=== PATIENT | female | born 1965 | race Caucasian/White ===

== ENCOUNTER 2016-05-02 06:00 | Inpatient (IN) | payer BC, OTHER ==
--- NOTE | 2016-05-01 13:14 | RADRPT ---
Vent Rate: 66 bpm RR Interval: 0 msec [place] Interval: 142 msec QRS Duration: 76 msec QT Interval: 384 msec QTC Interval: 402 msec P-R-T [place]: 47 - 49 - 35 degrees Normal sinus rhythm Normal ECG Electronically Signed By: Manuelito Denny [id number]
[2016-05-02] VITALS (33 sets, daily range): BP systolic 80–125; BP diastolic 46–76; PULSE 68–95; RESP 11–26; Ht 162.6 cm; Wt 66.5 kg
[~2016-05-02] VITALS: Ht 162.6 cm; Wt 66.5 kg
--- NOTE | 2016-05-02 05:29 | PREOPHP ---
DATE OF ADMISSION: 05/02/2016 HISTORY OF PRESENT ILLNESS: This is a 50-year-old lady, 4, para 3 with 1 spontaneous aborti on. Her last normal menstrual period was a few months prior to admission. She was admitted for JOSE and BSO. This patient had a history of abnormal Pap smear. Colposcopy biopsy done showed ANIBAL 1, a nd she had repeat Pap smear again. It showed again low grade KORY. The patient had a LEEP and D and C, and the LEEP and D and C showed low-grade KORY for the ectocervix and for the endocervix with low -grade KORY on the endocervix. It showed some focal glandular involvement which extends to the caute rized tissue. She saw a [facility]OSPICE [facility] AIDE oncologist, and he advised the patient to have JOSE and BSO. The patien nova was admitted for JOSE and BSO. The procedures were explained to her, and she understood everything totally. The risks, benefits, and alternatives were discussed with her as well. PAST PERSONAL HISTORY: No history of TB or asthma. ALLERGIES: NO ALLERGIES. SOCIAL HISTORY: The patient does not smoke. She does not drink. MEDICATIONS: She does not take any drugs. GYNECOLOGIC HISTORY: She had menarche at the age of 13, every 28 days interval, 3 to 4 days duratio n, and moderate in amount. FAMILY HISTORY: Mother has diabetes. Mother and sister have high blood pressure as well. She is g ravida 4, para 3 with 3 normal deliveries. REVIEW OF SYSTEMS: CARDIOVASCULAR: No chest pains. RESPIRATORY: No cough. GASTROINTESTINAL: No diarrhea, no vomiting. GENITOURINARY: No dysuria. PHYSICAL EXAMINATION: GENERAL: Reveals a conscious coherent lady in no acute distress. VITAL SIGNS: Her blood pressure is 120/80, pulse rate 80 per minute, respirations 16 per minute. BREASTS, HEART, AND LUNGS: Within normal limits. ABDOMEN: Soft. No organomegaly. PELVIC: Revealed the cervix to be firm, uterus of normal size, and adnexa were negative for masses. RECTAL: Confirmed the pelvic findings. EXTREMITIES: No pedal edema. 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 The patient was planned to have JOSE and BSO per oncology recommendation. The procedures were explained to her, and she understood everything totally. The r isks, benefits, and alternatives were discussed with her as well. Dictated By: CORBIN ACEVEDO MD NS/NTS Conf#: [id number] DID#: [id number] CC: CORBIN ACEVEDO MD;*EndCC*
[2016-05-02] MEDS ORDERED: ESMOLOL 100 MG INJ ONE (07:00)
[2016-05-02] MEDS ORDERED: morphine SULFATE/PF (10 MG/10 ML) INJ ONE (07:29)
[2016-05-02] MEDS ORDERED: ROCURONIUM 50 MG INJ ONE (07:29)
[2016-05-02] MEDS ORDERED: PROPOFOL 20 ML ONE (07:29)
[2016-05-02] MEDS ORDERED: MIDAZOLAM 1 MG/ML 2 ML INJ ONE (07:29)
[2016-05-02] MEDS ORDERED: PHENYLephrine (100 MCG/ML) 5ML SYG ONE ×3 (07:47→08:23)
[2016-05-02] MEDS ORDERED: CEFAZOLIN 1 GM INJ ONE (08:07)
[2016-05-02] MEDS ORDERED: GLYCOPYRROLATE 0.4 MG INJ ONE (08:38)
[2016-05-02] MEDS ORDERED: KETOROLAC 30 MG INJ ONE (08:38)
[2016-05-02] MEDS ORDERED: DEXAMETHASONE 4 MG/ML 1 ML INJ ONE (08:38)
[2016-05-02] MEDS ORDERED: METOCLOPRAMIDE 10 MG INJ ONE (08:38)
[2016-05-02] MEDS ORDERED: NEOSTIGMINE 3 MG/3 ML SYRINGE ONE ×2 (08:38→09:06)
[2016-05-02] MEDS ORDERED: ONDANSETRON 4 MG INJ ONE (08:38)
[2016-05-02] MEDS ORDERED: ACETAMINOPHEN 1000MG/100ML IV 100 ML ONE (08:58)
[2016-05-02] MEDS ORDERED: ONDANSETRON 4 MG INJ IV PRN (09:00)
[2016-05-02] MEDS ORDERED: KETOROLAC 30 MG INJ IV PRN (09:00)
[2016-05-02] MEDS ORDERED: NALBUPHINE HCL (10 MG/1 ML) INJ IV PRN (09:00)
[2016-05-02] MEDS ORDERED: DIPHENHYDRAMINE 50 MG INJ IV PRN (09:00)
[2016-05-02] MEDS ORDERED: morphine 2 MG INJ IV PRN (09:00)
[2016-05-02] MEDS ORDERED: ACETAMINOPHEN 500 MG TAB PO PRN (09:00)
[2016-05-02] MEDS ORDERED: HYDROCODONE/APAP (5/325) TAB PO PRN (09:00)
[2016-05-02] MEDS ORDERED: HYDROmorphONE 1 MG/ML SYG IV PRN ×2 (09:00)
[2016-05-02] MEDS ORDERED: ZOLPIDEM 5 MG TAB PO PRN (09:00)
[2016-05-02] MEDS ORDERED: NALOXONE (0.4 MG/ML) INJ IV PRN (09:00)
[2016-05-02] MEDS ORDERED: ONDANSETRON 4 MG TAB PO PRN (10:00)
[2016-05-02] MEDS ORDERED: BISACODYL 10 MG SUPP PR PRN (10:00)
[2016-05-02] MEDS ORDERED: HETASTARCH 6% NACL 500 ML ONE (10:24)
[2016-05-02] MEDS ORDERED: HETASTARCH 6% NACL 500 ML BAG IV* ONE (10:29)
[2016-05-02] MEDS: LACTATED RINGER'S 1,000 ML IV SCH ×3 (14:23→22:00)
[2016-05-02 15:29] LABS: ADD UMIC YES; URINE BILIRUBIN (Dip) NEGATIVE (NEGATIVE); URINE BLOOD (Dip) TRACE (NEGATIVE); URINE COLOR YELLOW (YELLOW); URINE GLUCOSE (Dip) NEGATIVE (NEGATIVE); URINE KETONES (Dip) NEGATIVE (NEGATIVE); URINE LEUKOCYTE ESTERASE (Dip) NEGATIVE (NEGATIVE); URINE NITRITE (Dip) NEGATIVE (NEGATIVE); URINE TOTAL PROTEIN (Dip) NEGATIVE (NEGATIVE); URINE UROBILINOGEN (Dip) 0.2 E.U./dL (0.1-1.0)
[2016-05-02 15:48] LABS: SQUAMOUS EPITHELIAL CELL,UR FEW
[2016-05-03] VITALS (10 sets, daily range): BP systolic 84–111; BP diastolic 50–73; PULSE 53–110; RESP 14–22
[2016-05-03] MEDS: LACTATED RINGER'S 1,000 ML IV SCH ×7 (02:54→20:26)
[2016-05-03 05:55] LABS: ADD SCAN DIFF NO
[2016-05-03] MEDS ORDERED: BISACODYL 10 MG SUPP PR ONE (06:00)
[2016-05-03] MEDS: MAGNESIUM HYDROXIDE 30ML CUP PO SCH ×3 (06:05→20:04)
--- NOTE | 2016-05-03 06:11 | OPR ---
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 POSTOPERATIVE DIAGNOSIS: Pending pathology report. SURGEON: Corbin Blair MD RESEARCH NURSE: MD Diamond ANESTHESIA: General. OPERATION PERFORMED: Exploratory laparotomy, total abdominal hysterectomy, bilateral salpingo-oopho rectomy. OPERATIVE TECHNIQUE: Under general anesthesia, the patient was prepped and draped in the usual [facility] for abdominal surgery. After checking for the effect of the anesthesia, Pfannenstiel incision, 12 cm skin incision, was performed. The incision was carried from the skin up to the fascia. Upon opening the skin up to the fascia, small blood vessels were noted to be oozing, and these were all c auterized. Fascia was opened transversely followed by splitting the muscles vertically and the antonio toneum vertically. Upon opening the abdominal cavity, the upper abdominal organs were palpated and were within normal limits. The uterus was brought to view. It was noted to be about 12 weeks' size and very soft. Then, the self-retaining retractor was put in place. The bladder blade was put in place. The bowels were packed away from the operative field with the aid of 6 wet lap sponges. The n, the upper blade was put in place. Two 8 inch Kochers were placed at the stump of utero-ovarian a nd uterotubal ligaments on both sides. These were used for traction. Then the left round ligament was grasped with 2 Kochers and cut. A stick tie with 0 Vicryl was used as tag. The left broad liga ment was skeletonized for the development of the bladder flap. The left infundibulopelvic ligament was grasped with 2 Teresa clamps and pulled back with a straight Jeffrey and cut. At first, a free t ie with 0 Vicryl was used followed by Teresa suture. Bleeders were checked, and there was no bleedi ng noted. Same thing was done on the right side. The right round ligament was grasped with 2 Koche rs and cut. A stick tie with 0 Vicryl was used as tag. The right broad ligament was skeletonized f or the development of the bladder flap. The right infundibulopelvic ligament was grasped with 2 Hea allyn clamps and pulled back with a straight Jeffrey and cut. At first, a free tie with 0 Vicryl was u sed followed by Teresa suture. Bleeders were checked, and there was no bleeding noted. Once again, the bladder was from the cervix by sharp and blunt dissection after the broad ligaments on both sides. Then, the left uterine vessels were brought to view. The left uterine ves sels were grasped with 2 Teresa clamps and pulled back with a straight Jeffrey and cut. A stick tie with 0 Vicryl was used on its clamp. Bleeders were checked, and there was no bleeding noted. Same thing was done on the right side. Then, once again, the bladder was from the cervix by sh milena and blunt dissection. Then the paracervical tissue on both sides was grasped with two 8 inch Ko chers, and a stick tie with 0 Vicryl was used on its clamp. Then the body of the uterus was excised for good visualization of the operative field. Then, the remaining cervix was grasped with two sin gle tooth tenaculums. Once again, the bladder was from the cervix by sharp and blunt diss ection. About 7 Kochers were placed at the paracervical tissue on the left and right sides, and bef ore clamping, the bladder was from the cervix by sharp and blunt dissection. A stick tie with 0 Vicryl was used on its clamp. Then the left uterosacral ligament was grasped with a Jeffrey a nd cut. A stick tie with 0 Vicryl was used as tag. Same thing was done on the right side. Then, t he cervical vaginal angle was brought to view. The cervical vaginal angle was grasped with 2 Teresa clamps, and the cervix was excised. The Teresa suture was used on its clamp. Then, another layer of 0 Vicryl was used to reinforce the suture on the clamp. Bleeders were checked, and there was grant e oozing noted at the right angle of the vagina. Two rajvcy-wo-rwyvb sutures were put in, and the b leeding was controlled. Then, irrigation was checked and bleeders were checked, and there was no bl eeding noted. Then, the right angle of the vagina was tied with a right uterosacral ligament for va ginal vault suspension. Same thing was done on the left side. Once again, bleeders were checked, a nd there was no bleeding noted. The raw area was covered with fibrillar. Then, after correct spong e count, needle count, and instrument count, the abdomen was closed in the usual fashion using 0 Steven ryl for the peritoneum, 0 Vicryl for the muscles, for the fascia 0 Vicryl continuous suture was used followed by few seqezr-iy-agjew sutures. For the subcutaneous tissue, it was closed with 3-0 Vicry l, and the skin was closed with 3-0 Vicryl, subcuticular suture was used. The patient tolerated the procedure well. Estimated blood loss about 300 mL. Vital signs were stable during and after the p rocedure. Dictated By: CORBIN EUBANKS/PEPE Conf#: [id number] DID#: [id number]
[2016-05-03 06:12] LABS: BASOPHILS % 0.2 % (0.0-2.0); EOSINOPHILS % 0.1 % (0.0-7.0); HEMATOCRIT 28.5 % (37.0-47.0); HEMOGLOBIN 9.3 g/dl (12.0-16.0); LYMPHOCYTES # 1.3 10^3/ul (0.8-2.9); LYMPHOCYTES % 14.3 % (15.0-51.0); MEAN CORPUSCULAR HEMOGLOBIN 31.2 pg (29.0-33.0); MEAN CORPUSCULAR HGB CONC 32.6 g/dl (32.0-37.0); MEAN CORPUSCULAR VOLUME 95.6 fl (82.0-101.0); MEAN PLATELET VOLUME 9.7 fl (7.4-10.4); MONOCYTE # 0.7 10^3/ul (0.3-0.9); MONOCYTES % 7.7 % (0.0-11.0); NEUTROPHIL # 7.1 10^3/ul (1.6-7.5); NEUTROPHILS % 77.4 % (39.0-77.0); PLATELET COUNT 180 10^3/UL (140-415); RED BLOOD COUNT 2.98 10^6/ul (4.20-5.40); RED CELL DISTRIBUTION WIDTH 12.5 % (11.5-14.5); WHITE BLOOD COUNT 9.1 10^3/ul (4.8-10.8)
[2016-05-03 06:25] LABS: POTASSIUM 3.4 mmol/L (3.5-5.1)
[2016-05-03 06:27] LABS: BILIRUBIN,INDIRECT 0.8 mg/dl (0-1.1); BILIRUBIN,TOTAL 0.8 mg/dl (0.2-1.3); CREATININE 0.68 mg/dl (0.44-1.00)
[2016-05-03 06:28] LABS: CALCIUM 7.2 mg/dl (8.4-10.2)
[2016-05-03] MEDS ORDERED: LACTATED RINGER'S 500 ML IV ONE (11:00)
[2016-05-03] MEDS ORDERED: OXYCODONE/ACETAMINOPHEN (5/325) TAB PO PRN (11:00)
[2016-05-03 13:58] LABS: ADD SCAN DIFF NO
[2016-05-03 13:59] LABS: BASOPHILS % 0.3 % (0.0-2.0); HEMATOCRIT 29.2 % (37.0-47.0); HEMOGLOBIN 9.6 g/dl (12.0-16.0); LYMPHOCYTES # 1.1 10^3/ul (0.8-2.9); LYMPHOCYTES % 9.6 % (15.0-51.0); MEAN CORPUSCULAR HEMOGLOBIN 31.9 pg (29.0-33.0); MEAN CORPUSCULAR HGB CONC 32.9 g/dl (32.0-37.0); MEAN PLATELET VOLUME 9.9 fl (7.4-10.4); MONOCYTE # 0.8 10^3/ul (0.3-0.9); MONOCYTES % 6.5 % (0.0-11.0); NEUTROPHIL # 9.7 10^3/ul (1.6-7.5); NEUTROPHILS % 83.2 % (39.0-77.0); PLATELET COUNT 170 10^3/UL (140-415); RED BLOOD COUNT 3.01 10^6/ul (4.20-5.40); RED CELL DISTRIBUTION WIDTH 12.6 % (11.5-14.5); WHITE BLOOD COUNT 11.7 10^3/ul (4.8-10.8)
--- NOTE | 2016-05-03 15:53 | RADRPT ---
PROCEDURE: XR Chest AP portable CLINICAL INDICATION: Right shoulder/chest pain TECHNIQUE: An AP portable radiograph of the chest was submitted. COMPARISON: 02/05/2007 FINDINGS: Support Hardware: None Cardiovascular: The cardiovascular silhouette appears unremarkable. Lung Khalil: Poor inspiratory effort is demonstrated with discoid atelectasis at the lung bases. No alveolar infiltrate is evident. Pleural Spaces: No pneumothorax or pleural effusion is identified. Osseous Structures: The osseous structures appear intact. Soft Tissues: The soft tissues appear generous. IMPRESSION: 1. Poor inspiratory effort with development of discoid atelectasis of the lung bases. 2. Otherwise, stable unremarkable portable chest. Physician Jaziel Date Time Electronically viewed and signed by Physician Jaziel on 05/03/2016 15:53 /
[2016-05-03] MEDS: OXYCODONE/ACETAMINOPHEN (5/325) TAB PO PRN (19:41)
[2016-05-03] MEDS ORDERED: morphine 4 MG/ML VIAL IV PRN (20:00)
[2016-05-03] MEDS ORDERED: LORAZEPAM 2 MG INJ IV PRN (22:30)
[2016-05-03] MEDS ORDERED: LORAZEPAM 2 MG INJ IV ONE (22:30)
[2016-05-04] VITALS: BP 100/59; PULSE 86; RESP 18
--- NOTE | 2016-05-04 01:32 | RADRPT ---
PROCEDURE: XR right shoulder. CLINICAL INDICATION: Right shoulder pain. TECHNIQUE: Single frontal view of the right shoulder were performed. COMPARISON: None. FINDINGS: There is normal osseous mineralization and alignment. No acute fracture or osseous lesion is identified. There are normal joints without evidence of arthritis or dislocation. Mild atelectasis at the right lung base. The soft tissues are unremarkable. IMPRESSION: Unremarkable right shoulder. RPTAT: [facility]U Physician Nic Date Time Electronically viewed and signed by Lynn Jack Physician on 05/04/2016 01:31 RS/
[2016-05-04] MEDS: LACTATED RINGER'S 1,000 ML IV SCH ×2 (04:40→13:52)
[2016-05-04 04:42] VITALS: BP 101/58; PULSE 92; RESP 19
[2016-05-04 06:05] LABS: ADD SCAN DIFF NO
[2016-05-04 06:09] LABS: BASOPHILS % 0.5 % (0.0-2.0); EOSINOPHILS # 0.1 10^3/ul (0.0-0.5); EOSINOPHILS % 0.6 % (0.0-7.0); HEMATOCRIT 26.4 % (37.0-47.0); HEMOGLOBIN 8.8 g/dl (12.0-16.0); LYMPHOCYTES # 1.3 10^3/ul (0.8-2.9); LYMPHOCYTES % 14.9 % (15.0-51.0); MEAN CORPUSCULAR HEMOGLOBIN 31.8 pg (29.0-33.0); MEAN CORPUSCULAR HGB CONC 33.3 g/dl (32.0-37.0); MEAN CORPUSCULAR VOLUME 95.3 fl (82.0-101.0); MEAN PLATELET VOLUME 9.5 fl (7.4-10.4); MONOCYTE # 0.7 10^3/ul (0.3-0.9); MONOCYTES % 7.7 % (0.0-11.0); NEUTROPHIL # 6.4 10^3/ul (1.6-7.5); NEUTROPHILS % 75.9 % (39.0-77.0); PLATELET COUNT 163 10^3/UL (140-415); RED BLOOD COUNT 2.77 10^6/ul (4.20-5.40); RED CELL DISTRIBUTION WIDTH 12.3 % (11.5-14.5); WHITE BLOOD COUNT 8.4 10^3/ul (4.8-10.8)
[2016-05-04] MEDS: OXYCODONE/ACETAMINOPHEN (5/325) TAB PO PRN ×3 (06:10→17:45)
[2016-05-04 06:23] LABS: ALBUMIN 2.2 g/dl (3.3-4.9)
[2016-05-04 06:24] LABS: POTASSIUM 3.2 mmol/L (3.5-5.1)
[2016-05-04 06:26] LABS: ALBUMIN/GLOBULIN RATIO 0.95; BILIRUBIN,INDIRECT 0.6 mg/dl (0-1.1); BILIRUBIN,TOTAL 0.6 mg/dl (0.2-1.3); CREATININE 0.55 mg/dl (0.44-1.00); TOTAL PROTEIN 4.5 g/dl (6.1-8.1)
[2016-05-04 06:27] LABS: CALCIUM 6.9 mg/dl (8.4-10.2)
[2016-05-04 06:54] LABS: THYROID STIMULATING HORMONE 1.49 MIU/L (0.465-4.680)
[2016-05-04 07:34] VITALS: BP 112/59; RESP 16
[2016-05-04] MEDS: MAGNESIUM HYDROXIDE 30ML CUP PO SCH (09:19)
[2016-05-04 12:00] VITALS: BP 117/69; PULSE 86; RESP 18
[2016-05-04 14:56] VITALS: BP 122/70; RESP 20
--- NOTE | 2016-05-04 15:55 | RADRPT ---
Vent Rate: 101 bpm RR Interval: 0 msec HI Interval: 148 msec QRS Duration: 72 msec QT Interval: 324 msec QTC Interval: 420 msec P-R-T [place]: 46 - 43 - 25 degrees Sinus tachycardia Nonspecific T wave abnormality Abnormal ECG Electronically Signed By: Manuelito Denny [id number]
--- NOTE | 2016-05-04 18:19 | PN ---
Date/Time of Note Date/Time of Note DATE: 05/04/16 TIME: 18:18 Assessment/Plan VTE Prophylaxis VTE Prophylaxis Intervention: other Lines/Catheters IV Catheter Type (from Nrsg): Peripheral IV Assessment/Plan Chief Complaint/Hosp Course R shoulder pain -Xray was negative -Trop and EKG shows no e/o ischemia -Clear for DC from a Med standpoint Problems: Exam/Review of Systems Vital Signs Vitals Vital Signs Date Time Temp Pulse Resp B/P Pulse Ox O2 Delivery O2 Flow Rate FiO2 05/04/16 14:56 98.2 92 20 122/70 95 05/04/16 12:00 Room Air 05/02/16 09:23 6.0 Intake and Output 05/03/16 05/03/16 05/04/16 15:00 23:00 07:00 Intake Total 2250 ml 1720 ml 1700 ml Output Total 700 ml 550 ml Balance 2250 ml 1020 ml 1150 ml Results Result Diagram: 05/04/16 0500 05/04/16 0550 Results 24 hrs Laboratory Tests Test 05/03/16 18:40 05/04/16 05:00 05/04/16 05:50 Troponin I < 0.012 White Blood Count 8.4 # Red Blood Count 2.77 L Hemoglobin 8.8 L Hematocrit 26.4 L Mean Corpuscular Volume 95.3 Mean Corpuscular Hemoglobin 31.8 Mean Corpuscular Hemoglobin Concent 33.3 Red Cell Distribution Width 12.3 Platelet Count 163 Mean Platelet Volume 9.5 Neutrophils % 75.9 Lymphocytes % 14.9 L Monocytes % 7.7 Eosinophils % 0.6 Basophils % 0.5 Nucleated Red Blood Cells % 0.0 Neutrophils # 6.4 Lymphocytes # 1.3 Monocytes # 0.7 Eosinophils # 0.1 Basophils # 0.0 Nucleated Red Blood Cells # 0.0 Sodium Level 135 Potassium Level 3.2 L Chloride Level 107 Carbon Dioxide Level 26 Anion Gap 5 L Blood Urea Nitrogen 10 # Creatinine 0.55 Glucose Level 109 Calcium Level 6.9 L Total Bilirubin 0.6 Direct Bilirubin 0.00 Indirect Bilirubin 0.6 Aspartate Amino Transf (AST/SGOT) 16 Alanine Aminotransferase (ALT/SGPT) 24 Alkaline Phosphatase 46 Total Protein 4.5 L Albumin 2.2 L Globulin 2.30 Albumin/Globulin Ratio 0.95 Thyroid Stimulating Hormone (TSH) 1.490 Medications Medications Current Medications Bisacodyl (Dulcolax Supp) 10 mg BID PRN NM CONSTIPATION; Start 05/02/16 at 10: 00 Ondansetron HCl (Zofran Tab) 4 mg Q4 PRN PO NAUSEA AND/OR VOMITING Last administered on 05/03/16 17:56; Admin Dose 4 MG; Start 05/02/16 at 10:00 Magnesium Hydroxide 30 ml 30 ml BID PO Last administered on 05/04/16 09:19; Admin Dose 30 ML; Start 05/03/16 at 06:00 Lactated Ringer's (Lr) 1,000 ml @ 125 mls/hr Q8H IV Last administered on 13:52; Admin Dose 125 MLS/HR; Start 05/02/16 at 14:00 Oxycodone/ Acetaminophen (Percocet (5/ 325)) 1 tab Q4H PRN PO PAIN; Start 05/03 at 11:00 Oxycodone/ Acetaminophen (Percocet (5/ 325)) 2 tab Q4H PRN PO PAIN Last administered on 05/04/16 17:45; Admin Dose 2 TAB; Start 05/03/16 at 11:00 Morphine Sulfate (morphine) 3 mg Q4H PRN IV pain ; Start 05/03/16 at 20:00 Lorazepam (Ativan) 1 mg Q4 PRN IV anxiety ; Start 05/03/16 at 22:30 JOEL JJ May 04, 2016 18:19
== END 2016-05-04 19:27 | disposition home or self-care (01) | DRG 741 ==
LOC: REC 06:00 → MS2 11:45
PROVIDERS: ADMIT Obstetrics & Gynecology; ATTEND Obstetrics & Gynecology
PROC: 0UTC0ZZ Resection of Cervix, Open Approach (ICD-10-PCS; 2016-05-02)
PROC: 0UT70ZZ Resection of Bilateral Fallopian Tubes, Open Approach (ICD-10-PCS; 2016-05-02)
PROC: 0UT20ZZ Resection of Bilateral Ovaries, Open Approach (ICD-10-PCS; 2016-05-02)
PROC: 0UT90ZZ Resection of Uterus, Open Approach (ICD-10-PCS; principal; 2016-05-02 07:30)
DX: D06.1 Carcinoma in situ of exocervix (principal)
CPT/HCPCS: 71010; 73020; 80053; 81001; 81003; 82962; 84443; 84484; 84702; 85025; 86850; 86900; 86901; 87086; 88305; 88341; 88342; 93005; A4310; J0131; J0690; J1100; J1885; J2060; J2250; J2274; J2370; J2405; J2710; J2765; J7120

== ENCOUNTER 2016-12-11 19:25 | Emergency (ER) | payer BC ==
[~2016-12-11] VITALS: Ht 165.1 cm; Wt 69.5 kg
[2016-12-11 20:17] VITALS: Ht 165.1 cm; Wt 69.5 kg
[2016-12-11] MEDS ORDERED: SOD CHLORIDE 0.9% 1,000 ML IV STA (23:25)
[2016-12-11] MEDS ORDERED: METOCLOPRAMIDE 10 MG INJ IV STA (23:25)
[2016-12-11] MEDS ORDERED: DIPHENHYDRAMINE 50 MG INJ IV STA (23:25)
[2016-12-11] MEDS ORDERED: KETOROLAC 30 MG INJ IV STA (23:25)
--- NOTE | 2016-12-11 23:30 | ERD ---
ER Documentation Chief Complaint Chief Complaint c/o cramer x 3 days, mild relief w motrin, c/o nausea, blurred vision and dizzy HPI Patient is a 51-year-old female who is otherwise healthy complaining of headache that she has had intermittently for 1 month but has been worse in the past 3 days. She states it was gradual in onset and started bilaterally in her occipital region but has now radiated forward. Nausea but no vomiting. She states at times he gets dizzy especially when she goes from sitting to standing. She denies any changes to her vision. She takes Motrin which helps especially at night when it helps her sleep. No fever. ROS All systems reviewed and are negative except as per history of present illness. Medications Home Meds Active Scripts Ondansetron (Zofran Odt) 4 Mg Tab.rapdis, 4 MG PO Q6, #20 Prov:VERO JOSEPH PA-C 12/12/16 Aspirin/Acetaminophen/Caffeine (Excedrin Migraine Caplet) 1 Each Tablet, 1 EACH PO Q6, #30 TAB Prov:VERO JOSEPH PA-C 12/12/16 Allergies Allergies: Coded Allergies: No Known Allergy (Unverified , 05/02/16) PMhx/Soc History of Surgery: Yes (D & C) Anesthesia Reaction: No Hx Neurological Disorder: No Hx Respiratory Disorders: No Hx Cardiac Disorders: No Hx Psychiatric Problems: No Hx Miscellaneous Medical Probl: No Hx Alcohol Use: No Hx Substance Use: No Hx Tobacco Use: No Smoking Status: Never smoker FmHx Family History: No diabetes Physical Exam Vitals Vital Signs Date Time Temp Pulse Resp B/P Pulse Ox O2 Delivery O2 Flow Rate FiO2 12/11/16 20:17 97.4 81 18 159/88 97 Physical Exam INITIAL VITAL SIGNS: Reviewed by me GENERAL: Awake, alert and oriented x 4, well appearing, nontoxic, speaking in full sentences. No acute distress HEAD: Atraumatic NECK: Supple. No masses. Full range of motion. No meningismus. No midline tenderness. EYES: EOMI. PERRL THROAT: No tonilar erythema or edema. No exudates. Uvula midline. No kissing tonsils. RESPIRATORY: Clear to auscultation bilaterally. Symmetric chest wall rise. No wheezing or rales. No accessory muscle use. CV: Regular rate and rhythm. No murmurs, rubs, or gallops. ABDOMEN: Soft, non-distended. Nontender. Negative Amoret. Negative McBurneys point tenderness. No CVA tenderness bilaterally. No guarding. No rebound. : Deffered. NEUROLOGIC: Normal mental status and speech. Face is symmetric. Moves all extremities equally. Motor and sensory distally intact. Normal coordination. Ambulates with a strong steady gait. 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, finger to nose within normal limits Results 24 hrs Laboratory Tests Test 12/11/16 23:46 Bedside Glucose 90mg/dL Current Medications Medications (Trade) Dose Ordered Sig/Wilfred Route PRN Reason Start Time Stop Time Status Last Admin Dose Admin Sodium Chloride (NS) 1,000 ml @ 1,000 mls/hr Q1H STAT IV 12/11/16 23:25 12/12/16 00:24 DC 12/11/16 23:38 Metoclopramide HCl (Reglan) 10 mg ONCE STAT IV 12/11/16 23:25 12/11/16 23:26 DC 12/11/16 23:39 Ketorolac Tromethamine (Toradol) 30 mg ONCE STAT IV 12/11/16 23:25 12/11/16 23:26 DC 12/11/16 23:39 Diphenhydramine HCl (Benadryl) 12.5 mg ONCE STAT IV 12/11/16 23:25 12/11/16 23:26 DC 12/11/16 23:38 Procedures/MDM 51-year-old female has headache and dizziness. She is well-appearing in no distress. She is not diabetic but Accu-Chek was still checked. She has relief with Motrin. Blood pressure elevated 159/88 otherwise vital signs are within normal limits. The differential diagnosis includes but is not limited to subdural hematoma, epidural hematoma, intracerebral hemorrhage, occult trauma, CVA, meningitis, encephalitis, hypertension, tension, migraine, cluster, cervical spine disease, and others. CT scan was ordered and she was given IV fluids, Reglan, Toradol, and Benadryl with improvement of her symptoms. Patient had improvement of her symptoms with the sudden medications. Her CT scan was unremarkable. Her Accu-Chek is within normal limits. She was discharged with Excedrin and Zofran. Patient counseled regarding my diagnostic impression and care plan. Prior to discharge all questions answered. Pt agrees with treatment plan and understands strict return precautions. Pt is instructed to follow up with primary care provider within 24- 48 hours. Precautionary instructions provided including instructions to return to the ER if not improving or for any worsening or changing symptoms or concerns. Departure Diagnosis: Primary Impression: Headache Condition: Stable VERO JOSEPH PA-C Dec 11, 2016 23:30
--- NOTE | 2016-12-12 00:57 | RADRPT ---
PROCEDURE: CT brain without contrast. CLINICAL INDICATION: Headache. TECHNIQUE: CT scan of the brain was performed on a multi-detector high-resolution CT scanner. Co ntiguous axial images were obtained from the skull base to the vertex without intravenous contrast. Coronal and sagittal reformatted images were also obtained. Images were reviewed on the PACS works tation. One or more of the following dose reduction techniques were used: - Automated exposure control. - Adjustment of the mA and/or kV according to patient size. - Use of iterative reconstruction technique. Exam CTD/vol = 45.01 mGy. Total exam DLP = 720.23 mGy-cm. COMPARISON: None. FINDINGS: The ventricles and cortical sulci are within normal limits for patient's age. There are no areas of abnormal attenuation within the brain parenchyma. There is no mass effect or midline shift. There is no intracranial hemorrhage or abnormal extra-axial collection. The calvarium is intact. There is no evidence of fracture. Visualized paranasal sinuses and mastoid air cells are clear. IMPRESSION: No acute intracranial abnormality identified. .Manny Motley MD, Date Time Electronically viewed and signed by .Manny Motley MD, on 12/12/2016 00:56 .T/
[2016-12-12] MEDS ORDERED: ONDA4TAB11 PO (01:01)
[2016-12-12] MEDS ORDERED: ASPI1TAB31 PO (01:01)
== END 2016-12-12 01:30 | disposition home or self-care (01) ==
LOC: FTE 19:25
DX: R51 Headache (principal)
CPT/HCPCS: 70450; 82962; 96374; 96375; J1200; J1885; J2765; J7030; Z7502

== ENCOUNTER 2018-03-22 06:08 | Day surgery (SDC) | payer BC ==
[~2018-03-22] VITALS: Ht 165.1 cm; Wt 69.2 kg
[~2018-03-22 06:08] MED LIST: ASPI1TAB31 PO; ONDA4TAB11 PO
[2018-03-22 07:27] VITALS: Ht 165.1 cm; Wt 69.2 kg
[2018-03-22] MEDS ORDERED: LIDOCAINE 4% SOLUTION 50 ML BTL ONE (08:01)
[2018-03-22 09:26] VITALS: BP 109/71; PULSE 68; RESP 14
[2018-03-22 09:31] VITALS: BP 106/65; PULSE 70; RESP 13
--- NOTE | 2018-03-22 09:34 | NUR ---
S/P EGD/COLON. AWAKE, ALERT, FOLLOWS COMMANDS. DENIES PAIN/DISCOMFORT. HEMODYNAMICS STABLE.. V/S WNL
[2018-03-22 09:36] VITALS: BP 106/66; PULSE 66; RESP 14
[2018-03-22] MEDS ORDERED: FENTAnyl 50 MCG/ML VIAL ONE (09:36)
[2018-03-22] MEDS ORDERED: MIDAZOLAM 1 MG/ML 2 ML INJ ONE ×2 (09:37)
[2018-03-22 09:41] VITALS: BP 108/68; PULSE 64; RESP 14
[2018-03-22 09:47] VITALS: BP 105/67; PULSE 64; RESP 13
[2018-03-22 10:13] VITALS: BP 115/70; PULSE 69; RESP 18
--- NOTE | 2018-03-22 10:16 | NUR ---
RE: DISCHARGE PATIENT DISCHARGED HOME. ALL DISCHARGE INSTRUCTIONS EXPLAINED AND PROVIDED TO PATIENT AND FAMILY. IV REMOVED. PATIENT VERBALIZED READINESS FOR DISCHARGE AND UNDERSTANDING OF INSTRUCTIONS PROVIDED.
== END 2018-03-22 10:11 | disposition home or self-care (01) ==
LOC: GIL 06:08
PROVIDERS: ATTEND Internal Medicine Gastroenterology
DX: Z12.11 Encounter for screening for malignant neoplasm of colon (principal); K29.00 Acute gastritis without bleeding; K20.8 Other esophagitis; K64.8 Other hemorrhoids
CPT/HCPCS: 43239; 45378; 88305; 88312; J2250; J3010; Z7610

== ENCOUNTER 2018-09-02 19:41 | Emergency (ER) | payer BC ==
[~2018-09-02] VITALS: Ht 157.5 cm; Wt 70.9 kg
[2018-09-02 19:45] VITALS: Ht 157.5 cm; Wt 70.9 kg
--- NOTE | 2018-09-02 19:53 | ERD ---
ER Documentation Chief Complaint Chief Complaint RIGHT CHEST WALL PAIN X SUNDAY. HPI The patient is a 53-year-old female, presenting to the ER because of acute left chest wall pain for 3 days, worse with movement, had similar symptoms previously, denies trauma, denies fever, chills, neck pain, chest pain with vomiting/radiation/exertion/diaphoresis, dyspnea, abdominal pain, vomiting, dysuria. She does not smoke nor drink, works as a security systems specialist Medical history: None Past surgical history: Hysterectomy ROS All systems reviewed and are negative except as per history of present illness. Medications Home Meds Active Scripts Ibuprofen* (Motrin*) 600 Mg Tab, 600 MG PO Q6H PRN for PAIN AND OR ELEVATED TEMP, #20 TAB Prov:ORTEGA BECKHAM MD 09/02/18 Reported Medications [none] No Conflict Check 03/22/18 Allergies Allergies: Coded Allergies: No Known Allergy (Unverified , 05/02/16) PMhx/Soc History of Surgery: Yes (HYSTERECTOMY) Anesthesia Reaction: No Hx Neurological Disorder: No Hx Respiratory Disorders: No Hx Cardiac Disorders: No Hx Psychiatric Problems: No Hx Miscellaneous Medical Probl: No Hx Alcohol Use: No Hx Substance Use: No Hx Tobacco Use: No Physical Exam Vitals Vital Signs Date Temp Pulse Resp B/P (MAP) Pulse Ox O2 O2 Flow FiO2 Time Delivery Rate 09/02/18 99.8 79 18 144/81 100 Room Air 22:19 (102) 09/02/18 99.8 94 18 152/85 97 19:45 (107) Physical Exam Const: No acute distress. Head: Atraumatic. Eyes: Normal Conjunctiva. ENT: Normal External Ears, Nose and Mouth. Neck: Full range of motion. No meningismus. Resp: Clear to auscultation bilaterally. Cardio: Regular rate and rhythm. Left chest wall tenderness on palpa tion, no crepitus Abd: Soft, non distended, normal bowel sounds, non tender. Skin: No petechiae or rashes. Back: No midline or flank tenderness. Ext: No cyanosis, or edema. Neur: Awake and alert. No focal deficit Psych: Normal Mood and Affect. Results 24 hrs Laboratory Tests Test 09/02/18 20:22 Bedside Urine pH (LAB) 6.0 Bedside Urine Protein (LAB) Negative Bedside Urine Glucose (UA) Negative Bedside Urine Ketones (LAB) Negative Bedside Urine Blood Negative Bedside Urine Nitrite (LAB) Negative Bedside Urine Leukocyte Esterase (L 1+ Current Medications Medications Dose Sig/Wilfred Start Time Status Last (Trade) Ordered Route PRN Stop Time Admin Dose Reason Admin Ketorolac 30 mg ONCE STAT 09/02/18 DC 09/02/18 Tromethamine IV 20:12 20:22 (Toradol) 09/02/18 20:14 Ondansetron 4 mg ONCE STAT 09/02/18 DC 09/02/18 HCl (Zofran IV 20:12 20:22 Inj) 09/02/18 20:14 Procedures/[place] [id number] Radiology Main Line: [phone] DIAGNOSTIC IMAGING REPORT Patient: DARIUS MARIN : 1965 Age: 53 Sex: F MR #: [id number] DOS: 09/02/182011 Ordering MD: ORTEGA BECKHAM MD Location: E/R Room/Bed: PROCEDURE: XR Chest. CLINICAL INDICATION: chest pain TECHNIQUE: Single AP view of the chest was obtained COMPARISON: 05/03/2016 FINDINGS: The heart and mediastinum are within normal limits. The pulmonary vasculature are unremarkable. The aorta is grossly unremarkable. There is no lung consolidation, pleural effusion or pneumothorax. Degenerative changes are seen within the thoracic spine and shoulders. There is no acute osseous abnormality. IMPRESSION: No acute disease. RPTAT: AA .Dayanara Zaragoza MD, Date Time Electronically viewed and signed by .Dayanara Zaragoza MD, on 09/02/2018 20:54 .J/ CC: ORTEGA BECKHAM MD [id number] EKG: Read by emergency physician Rate/Rhythm: Normal Sinus Rhythm 74 beats/min QRS, ST, T-waves: No ST elevation, no T inversion, low voltage Impression: Abnormal EKG MEDICAL MAKING DECISION: The patient is a 53-year-old female, presenting with acute chest wall pain, treated with Toradol 30 mg IV for pain, Zofran IV for nausea with good response, is stable for outpatient follow-up The differential diagnoses considered include but are not limited to acute coronary syndrome, acute myocardial infarction, pericarditis, pulmonary embolism, aortic dissection, pneumonia, pleural effusion, pneumothorax, GERD, chest wall pain. Departure Diagnosis: Primary Impression: Chest wall pain Condition: Good Comments She was discharged with Motrin I discussed the findings with the patient. I advised the patient to follow-up with the primary physician in about 1-2 days, sooner if needed and return if any concern. Disclaimer: Inadvertent spelling and grammatical errors are likely due to EHR/dictation software use and do not reflect on the overall quality of patient care. Also, please note that the electronic time recorded on this note does not necessarily reflect the actual time of the patient encounter. ORTEGA BECKHAM MD Sep 02, 2018 19:53
[2018-09-02] MEDS ORDERED: KETOROLAC 30 MG INJ IV STA (20:12)
[2018-09-02] MEDS ORDERED: ONDANSETRON 4 MG INJ IV STA (20:12)
[2018-09-02] MEDS ORDERED: IBUP-1542 PO (21:52)
[2018-09-02 22:19] VITALS: BP 144/81; PULSE 79; RESP 18
== END 2018-09-02 22:20 | disposition home or self-care (01) ==
LOC: E/R 19:41
DX: R07.89 Other chest pain (principal)
CPT/HCPCS: 71045; 81003; 93005; 96374; 96375; J1885; J2405; Z7502